=== PATIENT | female | born 1970 | race African-American/Black ===

== ENCOUNTER 2017-06-10 12:38 | Outpatient (CLI) | payer OTHER ==
--- NOTE | 2017-06-10 16:31 | Mammography Report ---
Screening mammogram: There is a heterogeneously dense and symmetrically distributed fibroglandular pattern. In the left MLO view there is an area of asymmetry in the inferior posterior breast with this exception the findings appear generally unremarkable. CAD used. Impression: Left asymmetry. Recommendation: Additional imaging of the left breast. Ultrasound, if needed. BI-RADS CATEGORY: 0 = Needs additional imaging evaluation ACR BI-RADS MAMMOGRAPHIC CODES: 0 = Needs additional imaging evaluation; 1 = Negative; 2 = Benign; 3 = Probably benign; 4 = Suspicious; 5 = Malignant; 6 = Known biopsy-proven malignancy COMMENT: 1. Dense breast tissue, i.e., adenosis, fibrocystic changes, etc., may obscure an underlying neoplasm. 2. Approximately 10% of cancers are not detected with mammography. 3. A negative mammography report should not delay biopsy if a clinically suspicious mass is present.
== END 2017-06-10 12:39 | disposition home or self-care (01) ==
LOC: MAMMO 12:38
PROVIDERS: ATTEND Surgery
DX: Z12.31 Encounter for screening mammogram for malignant neoplasm of breast (principal)
CPT/HCPCS: 77067; G0202